=== PATIENT | female | born 1980 | race Caucasian/White ===

== ENCOUNTER 2019-01-17 16:15 | Emergency (ER) | payer SELFPAY ==
[~2019-01-17] VITALS: Ht 165.1 cm; Wt 75.0 kg
[2019-01-17 16:21] VITALS: Ht 165.1 cm; Wt 75.0 kg
[2019-01-17] MEDS ORDERED: CYMBALTA60 MG PO (16:23)
[2019-01-17] MEDS ORDERED: NEURONTIN 300300 MG PO (16:23)
[2019-01-17] MEDS ORDERED: VISTARIL50 MG PO (16:24)
[2019-01-17] MEDS ORDERED: ULTRAM50 MG PO (18:23)
[2019-01-17 18:56] VITALS: BP 135/83
== END 2019-01-17 18:56 | disposition home or self-care (01) ==
LOC: D.ER 16:15
DX: S40.011A Contusion of right shoulder, initial encounter (principal); W18.30XA Fall on same level, unspecified, initial encounter; Y93.89 Activity, other specified; Y92.89 Other specified places as the place of occurrence of the external cause